=== PATIENT | male | born 1985 | race African-American/Black ===

== ENCOUNTER 2017-11-26 14:17 | Emergency (ER) | payer SELFPAY ==
[2017-11-26] MEDS ORDERED: IBUPROFEN 800 MG TABLET PO ONE (15:55)
--- NOTE | 2017-11-26 15:57 | ER Document Report ---
HPI - HPI Onset/Duration: Gradual Quality of pain: Achy Pain Level: 3 Context: Patient presents with a 3 day history of flulike symptoms. Patient complains of fever, chills body aches, cough and congestion. Patient reports fever of 101 yesterday. Associated Symptoms: Body/muscle aches, Chills, Nonproductive cough, Fever, Sore throat Exacerbated by: Denies Relieved by: Denies Similar symptoms previously: No Recently seen / treated by doctor: No - ROS ROS below otherwise negative: Yes Systems Reviewed and Negative: Yes All other systems reviewed and negative - CONSTITUTIONAL Constitutional: REPORTS: Fever, Chills - EENT EENT: REPORTS: Nasal Drainage-Clear, Congestion - RESPIRATORY Respiratory: REPORTS: Coughing - GASTROINTESTINAL Gastrointestinal: DENIES: Nausea, Patient vomiting, Diarrhea - MUSCULOSKELETAL Musculoskeletal: DENIES: Back Pain, Neck Pain - DERM Skin Color: Normal Skin Problems: None Past Medical History - General Information source: Patient - Social History Smoking Status: Never Smoker Chew tobacco use (# tins/day): No Frequency of alcohol use: Occasional Drug Abuse: None Occupation: [employer] Family History: Reviewed & Not Pertinent Patient has suicidal ideation: No Patient has homicidal ideation: No - Medical History Medical History: Negative Renal/ Medical History: Denies: Hx Peritoneal Dialysis Surgical Hx: Negative - Immunizations Hx Diphtheria, Pertussis, Tetanus Vaccination: Yes Vertical Provider Document - CONSTITUTIONAL Agree With Documented VS: Yes Exam Limitations: No Limitations General Appearance: WD/WN, No Apparent Distress - INFECTION CONTROL TRAVEL OUTSIDE OF THE [place] IN LAST 30 DAYS: No - HEENT HEENT: Atraumatic, Normocephalic, Pharyngeal Erythema. negative: Pharyngeal Exudate, Pharyngeal Tenderness, Tympanic Membrane Red, Tympanic Membrane Bulging - NECK Neck: Normal Inspection, Supple. negative: Lymphadenopathy-Left, Lymphadenopathy-Right - RESPIRATORY Respiratory: Breath Sounds Normal, No Respiratory Distress, Chest Non-Tender O2 Sat by Pulse Oximetry: 99 - CARDIOVASCULAR Cardiovascular: Regular Rate, Regular Rhythm, No Murmur - BACK Back: Normal Inspection. negative: CVA Tenderness-Right, CVA Tenderness-Left - MUSCULOSKELETAL/EXTREMETIES Musculoskeletal/Extremeties: MAEW, FROM - NEURO Level of Consciousness: Awake, Alert, Appropriate Motor/Sensory: No Motor Deficit - DERM Integumentary: Warm, Dry, No Rash Course - Re-evaluation Re-evalutation: 11/26/17 15:56 Patient's respirations even and unlabored, patient nontoxic appearance. Patient states primarily he is needing a note for his employer at this time. - Vital Signs Vital signs: Temp Pulse Resp BP Pulse Ox 99.6 F 93 16 114/84 99 11/26/17 14:27 11/26/17 14:27 11/26/17 14:27 11/26/17 14:27 11/26/17 14:27 Discharge - Discharge Clinical Impression: Flu-like symptoms Condition: Stable Disposition: HOME, SELF-CARE Instructions: Anti-Inflammatory Medication ([facility]), Influenza ([facility]) Additional Instructions: Return immediately for any new or worsening symptoms Followup with your primary care provider, call tomorrow to make a followup appointment Prescriptions: Naproxen [Naprosyn 250 Nmg Tablet] 1 tab PO BID #14 tablet Forms: Return to Work Referrals: [facility] [Provider Group] - Follow up as needed [facility] [Provider Group] - Follow up as needed
[2017-11-26 16:06] VITALS: BP 123/88
== END 2017-11-26 16:06 | disposition home or self-care (01) ==
LOC: ER 14:17
DX: R50.9 Fever, unspecified (principal); R05 Cough; M79.1 Myalgia; J02.9 Acute pharyngitis, unspecified
CPT/HCPCS: 99283